=== PATIENT | female | born 1965 | race Caucasian/White ===

== ENCOUNTER 2018-04-23 09:39 | Outpatient (REF) | payer OTHER, SELFPAY ==
[2018-04-23 22:13] LABS: Cholesterol 185 mg/dL (50-200); Glucose 80 mg/dL (70-100); HDL Cholesterol 62 mg/dL (40-60); LDL CHOLESTEROL 113 mg/dL (<100); Triglyceride 97 mg/dL (30-150)
== END 2018-04-23 09:59 ==
LOC: NCHCN 09:39
PROVIDERS: Visit Provider Registered Nurse
DX: Z00.00 Encounter for general adult medical examination without abnormal findings (principal); E66.8 Other obesity
CPT/HCPCS: 80061; 82947; 83721

== ENCOUNTER → 2018-08-28 01:37 | Outpatient (CLI) | payer OTHER, SELFPAY ==
--- NOTE | 2018-08-28 15:41 | DI.MRI_ITS ---
SYMPTOMS/DIAGNOSIS: PAIN, M23.92, INTERNAL DERANGEMENT MRI OF THE LEFT KNEE: There are no prior comparison exams available. Fat-suppressed T2 axial, T1 and fat-suppressed T2 coronal, proton density and fat-suppressed T2 sagittal and proton density oblique sagittal sequences were performed. Resolution is suboptimal due to patient body habitus and inability to use the knee coil. There is a small joint effusion and small Godfrey's cyst. There is a question of a small amount of fluid in the anterior cruciate ligament. There is no evidence of a full-thickness tear. The medial collateral ligament shows a large amount of surrounding edema, but no focal tear. There is high signal in the medial tibial plateau, which could represent a bone contusion versus degenerative change. The medial meniscus is somewhat peripherally displaced, consistent with degenerative changes. There is some signal within the medial meniscus, but no evidence of a discrete tear. The lateral collateral ligament, posterior cruciate ligament and extensor mechanism appear intact. IMPRESSION: Small joint effusion and Godfrey's cyst. Medial collateral ligament sprain. Bony contusion versus degenerative changes of the medial tibial plateau. Degenerative changes of the medial meniscus.
== END ==
PROVIDERS: PCP Family Medicine; Visit Provider Specialist
DX: M25.562 Pain in left knee (principal); M23.92 Unspecified internal derangement of left knee; M25.462 Effusion, left knee; M71.22 Synovial cyst of popliteal space [Baker], left knee; M17.12 Unilateral primary osteoarthritis, left knee
CPT/HCPCS: 73721

== ENCOUNTER 2018-11-05 13:59 | Outpatient (REF) | payer OTHER, SELFPAY ==
[2018-11-05 21:47] LABS: HCT 49.6 % (36.0-46.0); HGB 16.9 g/dL (12.0-15.5); Mean Corp. HGB Concentration 34.1 g/dL (32.0-36.0); Mean Corpuscular Hemoglobin 31.5 pg (27.0-33.0); Mean Corpuscular Volume 92.4 fL (80-95); Mean Platelet Volume 11.8 fL (8.0-11.0); Platelet Count 293 x1000/uL (130-400); RBC 5.37 m/cumm (4.00-5.20); RBC Distribution Width 12.2 % (11.7-14.6); White Blood Cell Count 8.18 k/cumm (4.4-10.8)
[2018-11-05 22:14] LABS: ALT 22 U/L (12-78); AST 18 U/L (15-37); Albumin 4.6 g/dL (3.4-5.0); Alkaline Phosphatase 77 U/L (46-116); Anion Gap 7.9 mmol/L (3-11); BUN 9 mg/dL (7-18); Bilirubin, Total 1.1 mg/dL (0.2-1.0); CO2 32.1 mmol/L (21.0-32.0); CREATININE 0.83 mg/dL (0.55-1.02); Calcium 9.5 mg/dL (8.5-10.1); Chloride 99 mmol/L (98-107); Glucose 73 mg/dL (70-100); Potassium 4.1 mmol/L (3.5-5.1); Sodium 139 mmol/L (136-145); TSH (W/Ref FT4) 0.67 uIU/mL (0.358-3.74); Total Protein 8.3 g/dL (6.4-8.2)
== END 2018-11-05 14:19 ==
LOC: NCHCN 13:59
PROVIDERS: PCP Family Medicine; Visit Provider Family Medicine
DX: E05.90 Thyrotoxicosis, unspecified without thyrotoxic crisis or storm (principal); R53.83 Other fatigue
CPT/HCPCS: 80053; 85027; 84443

== ENCOUNTER 2019-04-22 12:44 | Outpatient (REF) | payer OTHER, SELFPAY ==
[2019-04-22 21:43] LABS: Abs Immature Grans 0.01 k/cumm (0.0-0.09); Absolute Basophil Count 0.03 k/cumm (0.0-0.2); Absolute Eosinophil Count 0.03 k/cumm (0.0-0.7); Absolute Lymphocyte Count 0.99 k/cumm (1.2-3.4); Absolute Monocyte Count 0.42 k/cumm (0.11-0.7); Absolute Neutrophil Count 4.07 k/cumm (1.2-6.7); Basophils % 0.5; Eosinophils % 0.5; HCT 44.1 % (36.0-46.0); HGB 15.2 g/dL (12.0-15.5); Immature Grans % 0.2; Lymphocytes % 17.8; Mean Corp. HGB Concentration 34.5 g/dL (32.0-36.0); Mean Corpuscular Hemoglobin 32.2 pg (27.0-33.0); Mean Corpuscular Volume 93.4 fL (80-95); Mean Platelet Volume 11.1 fL (8.0-11.0); Monocytes % 7.6; Neutrophils % 73.4; Platelet Count 305 x1000/uL (130-400); RBC 4.72 m/cumm (4.00-5.20); RBC Distribution Width 11.8 % (11.7-14.6); White Blood Cell Count 5.55 k/cumm (4.4-10.8)
[2019-04-22 21:54] LABS: ALT 20 U/L (14-59); AST 17 U/L (15-37); Albumin 4.3 g/dL (3.4-5.0); Alkaline Phosphatase 66 U/L (46-116); Anion Gap 9.8 mmol/L (3-11); BUN 7 mg/dL (7-18); CO2 28.2 mmol/L (21.0-32.0); CREATININE 0.84 mg/dL (0.55-1.02); Calcium 9.3 mg/dL (8.5-10.1); Chloride 103 mmol/L (98-107); Glucose 97 mg/dL (70-100); Potassium 3.8 mmol/L (3.5-5.1); Sodium 141 mmol/L (136-145); Total Protein 7.5 g/dL (6.4-8.2)
== END 2019-04-22 13:04 ==
LOC: NCHCN 12:44
PROVIDERS: PCP Family Medicine; Visit Provider Family Medicine
DX: K52.9 Noninfective gastroenteritis and colitis, unspecified (principal)
CPT/HCPCS: 80053; 85025

== ENCOUNTER 2019-06-24 12:08 | Outpatient (REF) | payer OTHER, SELFPAY ==
[2019-06-24 21:46] LABS: Glucose 80 mg/dL (74-106); TSH (W/Ref FT4) 0.54 uIU/mL (0.36-3.74)
[2019-06-24 21:59] LABS: Hemoglobin A1C 5.3 % (4.5-6.2)
[2019-06-30 15:11] LABS: Cholesterol 179 mg/dL (<200); HDL Cholesterol 54 mg/dL (40-60); Triglyceride 78 mg/dL (<150)
[2019-06-30 15:14] LABS: Calculated LDL 109 mg/dL
== END 2019-06-24 12:28 ==
LOC: NCHCN 12:08
PROVIDERS: PCP Family Medicine; Visit Provider Family Medicine
DX: Z00.00 Encounter for general adult medical examination without abnormal findings (principal); E06.0 Acute thyroiditis; E05.90 Thyrotoxicosis, unspecified without thyrotoxic crisis or storm; E66.9 Obesity, unspecified
CPT/HCPCS: 80061; 82947; 83036; 84443

== ENCOUNTER 2019-12-11 10:38 | Outpatient (CLI) | payer OTHER, SELFPAY ==
[2019-12-12 14:33] LABS: COVID-19 RT-PCR UVMMC Result Negative (Negative)
== END 2019-12-11 10:58 ==
PROVIDERS: PCP Family Medicine; Visit Provider Family Medicine
DX: R19.7 Diarrhea, unspecified (principal)
CPT/HCPCS: U0003

== ENCOUNTER 2021-12-06 16:48 | Outpatient (REF) | payer MEDICAID, SELFPAY ==
[2021-12-06 21:41] LABS: HCT 37.5 % (36.0-46.0); HGB 12.5 g/dL (11.2-15.7); MCH 30.8 pg (27.0-33.0); MCHC 33.3 % (32.0-36.0); MCV 92 fL (80-95); MPV 11.3 fL (8.0-11.0); Platelet Count 268 10^3/uL (130-400); RBC 4.06 10^6/uL (3.93-5.22); RDW 12.6 % (11.7-14.6); RDW-SD 43.3 fL; WBC 7.89 10^3/uL (4.4-10.8)
[2021-12-06 22:13] LABS: Hemoglobin A1C 4.8 % (<5.7)
[2021-12-06 22:28] LABS: ALT 22 U/L (14-59); AST 16 U/L (15-37); Albumin 4.6 g/dL (3.4-5.0); Alkaline Phosphatase 66 U/L (46-116); BUN 18 mg/dL (7-18); Bilirubin, Total 0.6 mg/dL (0.2-1.0); Calcium 8.9 mg/dL (8.5-10.1); Calculated LDL 130 mg/dL (<100); Chloride 103 mmol/L (98-107); Cholesterol 218 mg/dL (<200); Glucose 81 mg/dL (74-106); HDL Cholesterol 55 mg/dL (40-60); Potassium 3.9 mmol/L (3.5-5.1); Sodium 143 mmol/L (136-145); TSH (W/Ref FT4) 1.13 uIU/mL (0.36-3.74); Total Protein 7.5 g/dL (6.4-8.2); Triglyceride 169 mg/dL (<150)
[2021-12-08 06:34] LABS: Vitamin D 25 Total 28.6 ng/mL (30-100)
== END 2021-12-06 16:49 | disposition home or self-care (01) ==
LOC: NCHCN 16:48
PROVIDERS: PCP Family Medicine; Visit Provider Family Medicine
DX: E05.00 Thyrotoxicosis with diffuse goiter without thyrotoxic crisis or storm (principal); E55.9 Vitamin D deficiency, unspecified; R23.8 Other skin changes; R23.3 Spontaneous ecchymoses; E66.9 Obesity, unspecified; Z13.1 Encounter for screening for diabetes mellitus
CPT/HCPCS: 80053; 80061; 82306; 85027; 83036; 84443

== ENCOUNTER 2023-01-04 15:48 | Outpatient (REF) | payer MEDICAID, SELFPAY ==
[2023-01-04 21:44] LABS: TSH 0.67 uIU/mL (0.36-3.74)
[2023-01-04 22:01] LABS: Vitamin D 25 Total 36.9 ng/mL (30-100)
== END 2023-01-04 15:49 | disposition home or self-care (01) ==
LOC: NCHCN 15:48
PROVIDERS: PCP Family Medicine; Visit Provider Family Medicine
DX: E05.00 Thyrotoxicosis with diffuse goiter without thyrotoxic crisis or storm (principal); E55.9 Vitamin D deficiency, unspecified; F41.1 Generalized anxiety disorder
CPT/HCPCS: 82306; 84443

== ENCOUNTER 2023-11-08 17:57 | Outpatient (REF) | payer OTHER, SELFPAY ==
[2023-11-08 15:54] LABS: Anion Gap 6.4 mmol/L (3-11); BUN 14 mg/dL (7-18); CO2 31.6 mmol/L (21.0-32.0); CREATININE 0.9 mg/dL (0.55-1.02); Calcium 9.6 mg/dL (8.5-10.1); Chloride 104 mmol/L (98-107); Glucose 90 mg/dL (74-106); Sodium 142 mmol/L (136-145); TSH (W/Ref FT4) 1.22 uIU/mL (0.36-3.74)
== END 2023-11-08 17:58 | disposition home or self-care (01) ==
LOC: NCHCN 17:57
PROVIDERS: PCP Family Medicine; Visit Provider Family Medicine
DX: Z00.00 Encounter for general adult medical examination without abnormal findings (principal); E05.00 Thyrotoxicosis with diffuse goiter without thyrotoxic crisis or storm
CPT/HCPCS: 80048; 84443

== ENCOUNTER 2025-03-11 13:43 | Outpatient (REF) | payer SELFPAY ==
[2025-03-11 15:16] LABS: Abs Immature Grans 0.02 10^3/uL (0.0-0.06); HCT 35.2 % (36.0-46.0); HGB 12.0 g/dL (11.2-15.7); Immature Grans % 0.2 %; MCH 31.7 pg (27.0-33.0); MCHC 34.1 % (32.0-36.0); MCV 93 fL (80-95); MPV 11.4 fL (8.0-11.0); Platelet Count 214 10^3/uL (130-400); RBC 3.78 10^6/uL (3.93-5.22); RDW 12.1 % (11.7-14.6); RDW-SD 41.9 fL; WBC 8.68 10^3/uL (4.4-10.8)
[2025-03-11 15:40] LABS: ALT 27 U/L (14-59); AST 26 U/L (15-37); Albumin 3.7 g/dL (3.4-5.0); Alkaline Phosphatase 65 U/L (46-116); Anion Gap 6.9 mmol/L (3-11); BUN 14 mg/dL (7-18); Bilirubin, Total 0.5 mg/dL (0.2-1.0); CO2 32.1 mmol/L (21.0-32.0); Calcium 9.0 mg/dL (8.5-10.1); Chloride 103 mmol/L (98-107); Estimated GFR 100.81 (mL/min/1.73m2); Glucose 103 mg/dL (74-106); Potassium 3.8 mmol/L (3.5-5.1); Sodium 142 mmol/L (136-145); TSH 0.75 uIU/mL (0.36-3.74); Total Protein 7.1 g/dL (6.4-8.2)
[2025-03-11 22:15] LABS: T3, Total 103 ng/dL (97-169)
== END 2025-03-11 13:44 | disposition home or self-care (01) ==
LOC: NCHCN 13:43
PROVIDERS: PCP Family Medicine; Visit Provider Physician Assistant
DX: E05.00 Thyrotoxicosis with diffuse goiter without thyrotoxic crisis or storm (principal); R50.9 Fever, unspecified
CPT/HCPCS: 80053; 84439; 84443; 84480; 85025